=== PATIENT | male | born 1945 ===

== ENCOUNTER 2022-03-31 08:45 | Inpatient (IN) | payer OTHER ==
[~2022-03-31] VITALS: Ht 172.7 cm; Wt 95.7 kg
[2022-04-03] MEDS ORDERED: ATACAND HCT 321 EACH PO (09:05)
[2022-04-03] MEDS ORDERED: CILOSTAZOL50 MG PO (09:06)
[2022-04-03] MEDS ORDERED: DONEPEZIL HCL5 MG PO (09:06)
[2022-04-03] MEDS ORDERED: ZOCOR20 MG PO (09:06)
[2022-04-03] MEDS ORDERED: TENORMIN25 MG PO (09:07)
[2022-04-03] MEDS ORDERED: GLIMEPIRIDE4 M1 PO (09:07)
[2022-04-03] MEDS ORDERED: GABAPENTIN600 MG PO (09:07)
[2022-04-03] MEDS ORDERED: CHILDREN'S ASPI81 MG PO (09:08)
[2022-04-03] MEDS ORDERED: DICLOFENAC35 MG PO (09:08)
[2022-04-04] MEDS ORDERED: HYDRALAZINE HCL25 MG (07:52)
[2022-04-04] MEDS ORDERED: DICLOFENAC SODI75 MG (07:53)
[2022-04-04] MEDS ORDERED: LANSOPRAZOLE30 MG (07:53)
[2022-04-06] MEDS ORDERED: ELIQUIS2.5 MG PO (16:19)
[2022-04-06] MEDS ORDERED: PERCOCET 5-3251 EACH PO (16:19)
[2022-04-06] MEDS ORDERED: CEFADROXIL500 MG PO (16:19)
== END 2022-04-06 19:30 | DRG 470 ==
LOC: O/R 04-04 05:41 → SURH 04-04 08:45 → SURG 04-04 10:32 → SURH 04-04 13:30 → SURG 04-06 19:30
PROVIDERS: ADMIT Orthopaedic Surgery; ATTEND Orthopaedic Surgery
PROC: 0SRC0J9 Replacement of Right Knee Joint with Synthetic Substitute, Cemented, Open Approach (ICD-10-PCS; principal; 2022-04-04 13:30)
DX: M17.11 Unilateral primary osteoarthritis, right knee (principal); D62 Acute posthemorrhagic anemia; M22.11 Recurrent subluxation of patella, right knee; E78.2 Mixed hyperlipidemia; I10 Essential (primary) hypertension; G30.8 Other Alzheimer's disease; F02.80 Dementia in other diseases classified elsewhere, unspecified severity, without behavioral disturbance, psychotic disturbance, mood disturbance, and anxiety; Z20.822 Contact with and (suspected) exposure to COVID-19